=== PATIENT | female | born 1955 | race Two or more races ===

== ENCOUNTER 2018-05-01 07:06 | Inpatient (IN) | payer OTHER ==
[~2018-05-01] VITALS: Ht 147.3 cm; Wt 79.4 kg
[2018-05-01 07:20] VITALS: BP 153/64
[2018-05-01] MEDS ORDERED: TRANEXAMIC ACID 3,000 MG in SODIUM CHLORIDE IRRIG SOLUTION 70 ML IR ONE (08:00)
[2018-05-01] MEDS ORDERED: RIVA10TA PO (08:41)
[2018-05-01] MEDS ORDERED: SIMV40TA5 PO (08:41)
[2018-05-01] MEDS ORDERED: ATEN50TA PO (08:41)
[2018-05-01] MEDS ORDERED: OXYC-454 PO (08:41)
[2018-05-01] MEDS ORDERED: AMLO5TAB2 PO (08:41)
[2018-05-01] MEDS ORDERED: ACETAMINOPHEN 325 MG TABLET PO ONE (09:00)
[2018-05-01] MEDS ORDERED: oxyCODONE IR immediate release 5 MG PO ONE (09:00)
[2018-05-01] MEDS ORDERED: CELECOXIB 100 MG CAPSULE PO ONE (09:00)
[2018-05-01] MEDS ORDERED: CEFAZOLIN 1 GM in IV NS 0.9% 50 ML IV ONE (09:00)
[2018-05-01] MEDS ORDERED: IV NS 0.9% 1,000 ML IV PRN (12:16)
[2018-05-01] MEDS ORDERED: MORPHINE SULFATE INJ 4 MG/ML DISP.SYRIN IV PRN (12:30)
[2018-05-01] MEDS ORDERED: MAGNESIUM HYDROXIDE 30 ML UDC PO PRN (12:30)
[2018-05-01] MEDS ORDERED: ENOXAPARIN SODIUM 40 MG/0.4 ML DISP.SYRIN SQ SCH (12:30)
[2018-05-01] MEDS ORDERED: ACETAMINOPHEN 325 MG TABLET PO PRN ×2 (12:30→15:30)
[2018-05-01] MEDS ORDERED: ONDANSETRON HCL/PF 4 MG/2 ML VIAL IVP PRN (12:30)
[2018-05-01] MEDS ORDERED: MAG HYDROX/AL HYDROX/SIMETH 30 ML UDC PO PRN (12:30)
[2018-05-01] MEDS ORDERED: HYDROMORPHONE INJ 2 MG/ML DISP.SYRIN ONE (12:39)
[2018-05-01] MEDS ORDERED: MIDAZOLAM HCL 2 MG/2ML VIAL ONE (12:39)
[2018-05-01] MEDS ORDERED: KETOROLAC TROMETHAMINE INJ 60 MG/2 ML VIAL IM ONE (12:51)
[2018-05-01] MEDS ORDERED: BACITRACIN 50000 UNITS/VIAL ONE (12:51)
[2018-05-01] MEDS ORDERED: BUPIVACAINE MPF 0.5% W/EPI INJ 30 ML VIAL ONE (12:51)
[2018-05-01] MEDS ORDERED: KETOROLAC TROMETHAMINE INJ 30 MG/ML VIAL ONE (12:54)
[2018-05-01] MEDS ORDERED: BUPIVACAINE 0.5 % PF 150 MG/30 ML VIAL ONE (13:02)
[2018-05-01] MEDS ORDERED: ZOLPIDEM TARTRATE 5 MG TABLET PO PRN (15:30)
[2018-05-01] MEDS ORDERED: SENNOSIDES 8.6 MG TABLET PO PRN (15:30)
[2018-05-01] MEDS ORDERED: HYDROMORPHONE INJ 2 MG/ML DISP.SYRIN IV PRN (15:30)
[2018-05-01] MEDS ORDERED: DOCUSATE SODIUM 250 MG CAPSULE PO PRN (15:30)
[2018-05-01] MEDS ORDERED: HYDROCODONE/APAP 5/325MG 1 EACH TABLET PO PRN ×2 (15:30)
[2018-05-01 16:00] VITALS: BP 152/80
[2018-05-01 17:00] VITALS: BP 133/79
[2018-05-01 17:30] VITALS: BP 138/73
[2018-05-01] MEDS ORDERED: oxyCODONE IR immediate release 5 MG PO PRN (18:00)
[2018-05-01] MEDS ORDERED: diphenhydrAMINE HCL 25 MG CAPSULE PO PRN (18:00)
[2018-05-01] MEDS ORDERED: MENTHOL/CETYLPYRD (CEPACOL) 1 LOZ LOZENGE PO PRN (18:00)
[2018-05-01] MEDS ORDERED: HYDROMORPHONE INJ 0.5 MG/0.5 ML SYRINGE SQ PRN (18:00)
[2018-05-01] MEDS: DOCUSATE SODIUM 100 MG CAPSULE PO SCH (18:11)
[2018-05-01] MEDS: IV LR 1000 ML 1,000 ML IV PRN (18:15)
[2018-05-01 20:00] VITALS: BP 104/64
[2018-05-01] MEDS: ANCEF 1 GM/50 ML D5W IV SCH ×2 (21:19)
[2018-05-01] MEDS: FAMOTIDINE (20 MG) 20 MG TABLET PO SCH (21:19)
[2018-05-01] MEDS: oxyCODONE IR immediate release 5 MG PO PRN (21:53)
[2018-05-02] MEDS: oxyCODONE IR immediate release 5 MG PO PRN ×4 (04:45→16:18)
[2018-05-02] MEDS: ANCEF 1 GM/50 ML D5W IV SCH ×2 (04:45)
[2018-05-02] MEDS: IV LR 1000 ML 1,000 ML IV PRN (04:49)
[2018-05-02 06:26] LABS: HEMATOCRIT 37 % (33-45); HEMOGLOBIN 12.2 g/dL (11.5-14.8); LYMPHOCYTES # (AUTO) 1.1 /CMM (0.8-4.8); LYMPHOCYTES % (AUTO) 8.5 % (20.0-44.0); MEAN CORPUSCULAR HEMOGLOBIN 30 PG (26.0-33.0); MEAN CORPUSCULAR HGB CONC 33 g/dl (31.0-36.0); MEAN CORPUSCULAR VOLUME 91 fL (82-100); MONOCYTES # (AUTO) 0.7 /CMM (0.1-1.30); MONOCYTES % (AUTO) 5.4 % (2.0-12.0); NEUTROPHILS # (AUTO) 10.7 /CMM (1.8-8.9); NEUTROPHILS % (AUTO) 86.1 % (43.0-81.0); PLATELET COUNT (AUTO) 224 /CMM (150-450); RDW COEFFICIENT OF VARIATION 13.3 (11.5-15.0); RED BLOOD CELL COUNT(AUTO) 4.06 MIL/uL (4.0-5.2); WHITE BLOOD COUNT (AUTO) 12.4 K/uL (4.3-11.0)
[2018-05-02 06:46] LABS: CALCIUM, SERUM 8.4 mg/dL (8.5-10.1); CREATININE 0.9 mg/dL (0.6-1.3); MAGNESIUM 1.7 mg/dL (1.8-2.4); PHOSPHORUS 3.9 mg/dL (2.5-4.9); POTASSIUM 4.2 mmol/L (3.5-5.1)
[2018-05-02 08:00] VITALS: BP 116/66
[2018-05-02] MEDS: DOCUSATE SODIUM 100 MG CAPSULE PO SCH ×2 (08:09→16:17)
[2018-05-02] MEDS: FAMOTIDINE (20 MG) 20 MG TABLET PO SCH ×2 (08:09→22:56)
[2018-05-02] MEDS: RIVAROXABAN 10 MG TABLET PO SCH (08:09)
[2018-05-02] MEDS ORDERED: ASPIRIN 325 MG TABLET PO SCH (09:00)
[2018-05-02] MEDS ORDERED: PANTOPRAZOLE 40 MG VIAL IV SCH (09:00)
[2018-05-02] MEDS: Magnesium 1GM/D5W 100ML PREMIX 100 ML IV SCH ×2 (11:10→12:06)
[2018-05-02 16:00] VITALS: BP 150/71
[2018-05-02 20:00] VITALS: BP 142/84
[2018-05-02] MEDS: HYDROMORPHONE 1 MG/1 ML DISP.SYRIN SQ PRN (20:58)
[2018-05-03] MEDS: oxyCODONE IR immediate release 5 MG PO PRN ×3 (02:38→16:54)
[2018-05-03 05:52] LABS: CALCIUM, SERUM 7.5 mg/dL (8.5-10.1); CREATININE 0.7 mg/dL (0.6-1.3); MAGNESIUM 1.7 mg/dL (1.8-2.4)
[2018-05-03] MEDS: ONDANSETRON HCL/PF 4 MG/2 ML VIAL IVP PRN ×2 (06:33→16:54)
[2018-05-03] MEDS: HYDROMORPHONE 1 MG/1 ML DISP.SYRIN SQ PRN ×3 (06:36→18:53)
[2018-05-03 08:00] VITALS: BP 147/77
[2018-05-03] MEDS: DOCUSATE SODIUM 100 MG CAPSULE PO SCH ×2 (08:57→16:53)
[2018-05-03] MEDS: FAMOTIDINE (20 MG) 20 MG TABLET PO SCH (08:57)
[2018-05-03] MEDS: RIVAROXABAN 10 MG TABLET PO SCH (08:58)
[2018-05-03] MEDS: Magnesium 1GM/D5W 100ML PREMIX 100 ML IV SCH ×2 (11:24→12:30)
[2018-05-03 16:00] VITALS: BP 141/86
== END 2018-05-03 19:04 | DRG 470 ==
LOC: DS 07:06 → MED 07:08
PROVIDERS: ADMIT Specialist; ATTEND Specialist
PROC: 0SRD0J9 Replacement of Left Knee Joint with Synthetic Substitute, Cemented, Open Approach (ICD-10-PCS; principal; 2018-05-01 17:35)
DX: M17.12 Unilateral primary osteoarthritis, left knee (principal); E78.5 Hyperlipidemia, unspecified; I10 Essential (primary) hypertension; E66.01 Morbid (severe) obesity due to excess calories; E83.42 Hypomagnesemia; Z90.49 Acquired absence of other specified parts of digestive tract; Z90.710 Acquired absence of both cervix and uterus; Z68.36 Body mass index [BMI] 36.0-36.9, adult
CPT/HCPCS: 36415; 80048-TC; 80061-TC; 82962-TC; 83735-TC; 84100-TC; 85025-TC; 86850-TC; 86921-TC; 87081-TC; 88305-TC; 88311-TC; 97110-TC; 97116-TC; 97530-TC; 97760-TC; A4216; A4217; A4606; A6253; A6402; C1713; J0690; J1100; J1170; J1200; J1885; J2250; J2405; J2704; J3475; J3490; J7060; J7120; Z7610